=== PATIENT | male | born 1965 | race Caucasian/White ===

== ENCOUNTER 2021-08-25 07:49 | Inpatient (IN) | payer OTHER ==
[~2021-08-25] VITALS: Ht 180.3 cm; Wt 99.3 kg
[2021-08-25 08:33] LABS: HEMOGLOBIN 17.7 gm/dl (14.0-17.5); RED BLOOD COUNT 5.48 M/UL (4.20-5.50); WHITE BLOOD COUNT 11.6 K/UL (4.5-11.0)
[2021-08-25 09:24] LABS: BUN/CREATININE RATIO 14 (0-10)
[2021-08-25] MEDS ORDERED: PROTONIX40 MG PO (09:57)
--- NOTE | 2021-08-27 19:00 | NUR ---
UPON RN ARRIVING TO THE FLOOR, PT WAS IN THE OR. RN RECEIVED REPORT ON THIS PT HOWEVER, WAS UNABLE TO ASSESS PT AT THIS TIME.
--- NOTE | 2021-08-28 | NUR ---
PT ARRIVED TO ROOM 4112 FROM OR AT 0000. RN COMPLETED PT ASSESSMENT AT THIS TIME.
[2021-08-28 07:02] LABS: HEMOGLOBIN 13.8 gm/dl (14.0-17.5); RED BLOOD COUNT 4.36 M/UL (4.20-5.50); WHITE BLOOD COUNT 14.1 K/UL (4.5-11.0)
[2021-08-28 07:46] LABS: BUN/CREATININE RATIO 15 (0-10)
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
--- NOTE | 2021-08-29 13:00 | NUR ---
PATIENT STILL HAVING QUITE A BIT OF PAIN AND NAUSEA. STATES HE THREW UP. CALLED DR. DE GUZMAN GOT NO ANSWER. LEFT MESSAGE. WILL CONTINUE TO MONITOR.
[2021-08-31 09:06] LABS: BUN/CREATININE RATIO 23 (0-10)
== END 2021-09-03 12:10 | disposition home or self-care (01) | DRG 330 ==
LOC: ER1 07:49 → CDU 12:53 → MED SURG 4 16:31
PROVIDERS: Nurse Practitioner; ADMIT Surgery
PROC: 0D1 Gastrointestinal System, Bypass (ICD-10-PCS; 2021-08-25)
PROC: 0DQH4ZZ Repair Cecum, Percutaneous Endoscopic Approach (ICD-10-PCS; 2021-08-27)
PROC: 0DSN4ZZ Reposition Sigmoid Colon, Percutaneous Endoscopic Approach (ICD-10-PCS; principal; 2021-08-27 18:21)
DX: K57.20 Diverticulitis of large intestine with perforation and abscess without bleeding (principal); K56.609 Unspecified intestinal obstruction, unspecified as to partial versus complete obstruction; F17.210 Nicotine dependence, cigarettes, uncomplicated; Z20.822 Contact with and (suspected) exposure to COVID-19; Z98.890 Other specified postprocedural states; Z79.899 Other long term (current) drug therapy
CPT/HCPCS: 36415; 74018; 80048; 80053; 81001; 82550; 82553; 83690; 83874; 84484; 85025; 85027; 96374; 96375; 99285; J0690; J0780; J1100; J1170; J2001; J2250; J2270; J2405; J2543; J2704; J2710; J2765; J3010; J7030; J7120; P9045; Q9967; U0002

== ENCOUNTER → 2021-11-05 | Day surgery (SDC) | payer OTHER ==
[~2021-11-05] MED LIST: PROTONIX40 MG PO
== END | disposition home or self-care (01) ==
LOC: OR 07:28
DX: Z09 Encounter for follow-up examination after completed treatment for conditions other than malignant neoplasm (principal); K57.32 Diverticulitis of large intestine without perforation or abscess without bleeding; Z87.19 Personal history of other diseases of the digestive system; Z93.3 Colostomy status; Z90.49 Acquired absence of other specified parts of digestive tract; Z20.822 Contact with and (suspected) exposure to COVID-19
CPT/HCPCS: J2704; J7030

== ENCOUNTER 2021-11-06 05:57 | Inpatient (IN) | payer OTHER ==
[~2021-11-06] VITALS: Ht 180.3 cm; Wt 99.0 kg
--- NOTE | 2021-11-07 09:22 | NUR ---
GUIDRY CATHETER D/C'D WITH 600 URINE IN BAG, PT TOLERATED WELL.
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
== END 2021-11-07 16:30 | disposition home or self-care (01) | DRG 331 ==
LOC: OR 05:57 → MED SURG 4 15:32 → OR 15:33 → MED SURG 4 11-07 16:30
PROVIDERS: ADMIT Surgery
PROC: 3E03329 Introduction of Other Anti-infective into Peripheral Vein, Percutaneous Approach (ICD-10-PCS; 2021-11-06)
PROC: 0DBN4ZZ Excision of Sigmoid Colon, Percutaneous Endoscopic Approach (ICD-10-PCS; principal; 2021-11-06 08:35)
DX: Z43.3 Encounter for attention to colostomy (principal); F17.210 Nicotine dependence, cigarettes, uncomplicated; Z20.822 Contact with and (suspected) exposure to COVID-19; Z87.19 Personal history of other diseases of the digestive system; Z87.01 Personal history of pneumonia (recurrent)
CPT/HCPCS: J0690; J1100; J1170; J1885; J2001; J2250; J2270; J2405; J2704; J2710; J3010; J7030; J7120

== ENCOUNTER 2022-02-06 17:58 | Emergency (ER) | payer OTHER ==
[2022-02-06 20:18] LABS: HEMOGLOBIN 17.3 gm/dl (14.0-17.5); RED BLOOD COUNT 5.32 M/UL (4.20-5.50); WHITE BLOOD COUNT 9.6 K/UL (4.5-11.0)
== END 2022-02-06 20:17 | disposition left against medical advice (07) ==
LOC: ER1 17:58
PROVIDERS: Physician Assistant
DX: K94.09 Other complications of colostomy (principal)
CPT/HCPCS: 80053; 83605; 83690; 85025; 85610; 99283; Q9967

== ENCOUNTER → 2022-03-19 | Day surgery (SDC) | payer OTHER | END | disposition home or self-care (01) | LOC: OR 05:46 | DX: K43.9 Ventral hernia without obstruction or gangrene (principal); K66.0 Peritoneal adhesions (postprocedural) (postinfection); K57.32 Diverticulitis of large intestine without perforation or abscess without bleeding; Z93.3 Colostomy status | CPT/HCPCS: J0690; J1100; J1170; J1885; J2001; J2250; J2370; J2405; J2704; J2710; J3010 ==

== ENCOUNTER → 2022-03-21 | Day surgery (SDC) | payer OTHER | END | disposition home or self-care (01) | LOC: OR 05:25 | DX: K43.2 Incisional hernia without obstruction or gangrene (principal); K57.32 Diverticulitis of large intestine without perforation or abscess without bleeding | CPT/HCPCS: C1781; J0690; J1100; J1885; J2001; J2405; J2704; J2710; J3010 ==